=== PATIENT | female | born 1980 | race Caucasian/White ===

== ENCOUNTER 2016-12-23 06:00 | Inpatient (IN) | payer BC ==
[2016-12-23] MEDS ORDERED: TERBUTALINE SULFATE 1 MG/ML VIAL IV PRN (06:26)
[2016-12-23] MEDS ORDERED: EPSOM SALT 454 GM TP PRN (06:26)
[2016-12-23] MEDS ORDERED: LIDOCAINE 1% 30 ML SDV SC PRN (06:26)
[2016-12-23] MEDS ORDERED: OXYTOCIN/RINGERS LACTATE 1,000 ML IV PRN (06:26)
[2016-12-23] MEDS ORDERED: LR 1,000 ML IV PRN (06:26)
[2016-12-23] MEDS ORDERED: OLIVE OIL 118 ML BTL MISC PRN (06:26)
[2016-12-23] MEDS ORDERED: OXYTOCIN/LR *STANDARD DOSE PROTOCOL IV SCH (08:00)
[2016-12-23 08:07] LABS: % IMMATURE GRANULYOCYTES 1.2 % (0.0-1.1); ABSOLUTE IMMATURE GRANULOCYTES 0.13 10^3/uL (0.00-0.10); ADD DIFF? NO; ADD MORPH? NO; ADD SCAN? NO; ATYPICAL LYMPHOCYTE FLAG 30 (0-99); FRAGMENT RBC FLAG 0 (0-99); HEMATOCRIT 44.8 % (38.0-47.0); HEMOGLOBIN 15.1 g/dL (12.6-16.3); LEFT SHIFT FLG 0 (0-99); LIPEMIA HEMOLYSIS FLAG 80 (0-99); MEAN CELL HEMOGLOBIN 30.9 pg (27.9-34.1); MEAN CELL HEMOGLOBIN CONCENTR. 33.7 g/dL (32.4-36.7); MEAN CELL VOLUME 91.8 fL (81.5-99.8); MEAN PLATELET VOLUME 10.3 fL (8.7-11.7); PLATELET CLUMPS FLAG 0 (0-99); PLATELET COUNT 221 10^3/uL (150-400); RED BLOOD CELL COUNT 4.88 10^6/uL (4.18-5.33); RED CELL DISTRIBUTION WIDTH 13.2 % (11.5-15.2)
--- NOTE | 2016-12-23 09:25 | GHP ---
[f rep st] PREOP HISTORY AND PHYSICAL DATE OF ADMISSION: 12/23/2016 ADMISSION DIAGNOSES: 1. Intrauterine at 40 and 4/7 weeks' gestation. 2. Elective induction of labor. HISTORY OF PRESENT ILLNESS: The patient is a 36-year-old, 2, para 1-0-0-1, who is 40 and 4/ 7 weeks' gestation. She presents for elective induction of labor for being past her due date. The patient was 3 cm dilated in the office, 80% effaced, and -2 station. Her membranes were stripped on Tuesday, but she did not progress into labor so she is here for induction. MEDICAL HISTORY: Significant for migraines, anxiety. MEDICATIONS: vitamins. SURGICAL HISTORY: [place] teeth extraction. ALLERGIES: No known drug allergies. SOCIAL HISTORY: Patient is . 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 She lives with her and their other child. She denies tobacco, alcohol, or drug use. FAMILY MEDICAL HISTORY: Noncontributory. [employer]OC[employer]ATE [employer]OR HISTORY: Menarche age 13. Periods every 23-26 days, lasting 5-6 days. She is a 2, para 1-0-0-1. In 12/2015, she had a spontaneous vaginal delivery at 41 weeks of a 7 pounds, 12 ounc es female. She had an epidural with the labor. was uncomplicated. Current has been uncomplicated. The patient denies any history of any abnormal Pap smears or sexually transmit teri diseases. REVIEW OF SYSTEMS: A 10-point review of systems is negative including patient has good moveme nt and denies headache, changes in vision, nausea, or vomiting. There is no loss of fluid. No vagi nal bleeding. There is good movement. PHYSICAL EXAM: VITAL SIGNS: Stable. GENERAL APPEARANCE: She is alert and oriented x3. NECK: Th ere is no thyromegaly. The neck is supple. HEART: Rate is regular, regular. LUNGS: Clear to aus cultation bilaterally. ABDOMEN: Gravid, nondistended, nontender. EXTREMITIES: Reveal no calf ten derness or edema. PSYCH: Appropriate affect. PELVIC: 2-3 cm dilated, 80% effaced, and -2 station . Infant is in the cephalic presentation. She is having occasional contractions, and heart t racings is category 1. LABS: Blood type O negative. Antibody screen negative. Rubella immune. GBS negative. H BsAg negative. HIV negative. Her 50 g glucose was 81. Her Verifi screen was negative. She receiv ed RhoGAM in . ASSESSMENT AND PLAN: A 36-year-old, 2, para 1-0-0-1, who presents for elective induction of labor at 40 and 4/7 weeks' gestation. She has been started on Pitocin. She plans having an epidur al. /[id number]/MODL
[2016-12-23] MEDS ORDERED: fentaNYL 100 MCG/2 ML INJ ONE (10:54)
[2016-12-23] MEDS ORDERED: fentaNYL 2MCG/ML/BUP 0.1% RTU 100 ML BAG EP ONE (10:55)
[2016-12-23] MEDS ORDERED: BUPIVACAINE 0.25% 30 ML SDV ONE (10:55)
--- NOTE | 2016-12-23 12:40 | OBPROG ---
OBG Progress Note Assessment/Plan: Assessment: Plan: Subjective: patient is doing great. comfortable with epidural. arom - moderate amount of clear fluid. will recheck in several hours or sooner if indicated. status reassuring. Objective: 12/23/16 07:35 Patient ABO/Rh O NEGATIVE 12/23/16 07:35 - SVE Dilation (cm): 3 Effacement (%): 80 Station: -2 Current Contraction Pattern: Irregular FHR Pattern Variability: Moderate FHR Category: 1 Membranes: AROM Amniotic Fluid Color: Clear ICD10 Worksheet Patient Problems: Problems Problem Status Onset (spontaneous vaginal delivery) Acute
[2016-12-23] MEDS ORDERED: HYDROCORTISONE 0.5% CREAM TP PRN (13:56)
[2016-12-23] MEDS ORDERED: SIMETHICONE 80 MG TAB CHEW PO PRN (13:56)
--- NOTE | 2016-12-23 13:56 | OBPROC ---
- Labor and Delivery Onset of Contractions Date: 12/23/16 Onset of Contractions Time: 12:08 Onset of Contractions Type: Induced Rupture of Membranes Date: 12/23/16 Rupture of Membranes Time: 12:08 Rupture of Membranes Type: Artificial Amniotic Fluid Color: Clear Dilation Complete Time: 13:15 Delivery Type: Spontaneous Placenta Delivery Date: 12/23/16 Placenta Delivery Time: 13:38 Episiotomy/Laceration: 1st Degree Repair: 3-0 EBL: 300 Complications: None - [place] Info A Delivery Date: 12/23/16 Delivery Time: 13:33 Sex of Infant: Female Score (1 Min): 8 Score (5 Min): 9
[2016-12-23] MEDS: IBUPROFEN 600 MG TAB PO PRN ×2 (14:03→19:53)
[2016-12-23] MEDS ORDERED: PHENYLEPHRINE HCL 100 MCG/ML SYR IVP PRN (14:06)
[2016-12-23] MEDS ORDERED: METOCLOPRAMIDE 10 MG/2 ML VIAL IVP PRN (14:06)
[2016-12-23] MEDS ORDERED: fentaNYL 2MCG/ML/BUP 0.1% RTU 100 ML EP SCH (14:30)
[2016-12-23] MEDS ORDERED: LR 500 ML IV SCH (14:30)
[2016-12-23] MEDS: DOCUSATE SODIUM 100 MG CAP PO PRN (19:53)
[2016-12-23 20:00] VITALS: O2SAT 95
[2016-12-24] MEDS: IBUPROFEN 600 MG TAB PO PRN ×3 (01:41→18:38)
[2016-12-24] MEDS: HYDROCODONE/APAP 5/325 TAB PO PRN ×4 (05:37→19:29)
[2016-12-24] MEDS: DOCUSATE SODIUM 100 MG CAP PO PRN ×2 (09:24→19:31)
--- NOTE | 2016-12-24 11:30 | OBPROG ---
OBG Progress Note Assessment/Plan: Assessment: 36 y/o PPD #1 s/p doing well. Plan: support, continue Ibuprofen and Roy prn. Routine PPC, d/c home tomorrow. 12/24/16 11:29 Subjective: Pt is doing well this am. She had significant cramping and perineal pain last night improved with Ibuprofen and Roy. She has min lochia, and is voiding without difficulty. Breast feeding is gong well they are working on latching. Objective: 12/23/16 07:35 Patient ABO/Rh O NEGATIVE 12/23/16 07:35 Temp Pulse Resp BP Pulse Ox 36.1 C 76 18 114/68 95 12/24/16 08:00 12/24/16 08:00 12/24/16 08:00 12/24/16 08:00 12/24/16 08:00 Uterine Position/Fundal Height: Umbilicus -2 Uterine Tone: Firm - Physical Exam General Appearance: WD/WN, alert, no apparent distress Neck: non-tender, full range of motion, supple Respiratory: chest non-tender, lungs clear, normal breath sounds Cardiac/Chest: regular rate, rhythm Abdomen: normal bowel sounds Extremities: swelling (no), Brandon's sign (neg) ICD10 Worksheet Patient Problems: Problems Problem Status Onset (spontaneous vaginal delivery) Acute
[2016-12-25] MEDS: IBUPROFEN 600 MG TAB PO PRN ×2 (00:36→08:45)
[2016-12-25] MEDS: HYDROCODONE/APAP 5/325 TAB PO PRN ×4 (00:36→13:05)
[2016-12-25 09:29] VITALS: BP 106/69; PULSE 74; RESP 18; TEMP 97.9
--- NOTE | 2016-12-25 09:33 | SOAPPROG ---
SOAP Progress Note Assessment/Plan: Assessment: well pain well managed ff@u scant rubra lochia would like to go home today 0 bm x 48 hrs reassured/ passing gas voiding without difficulty Plan:discharge to home with instructions pain management, pnv continue, , ss infection, pericare, rest, fu 4 weeks and 6 weeks, depression , exercise, pelvic rest, contraception verbalized understanding of all of the above 12/25/16 09:30 Subjective: Doing well. denies difficulty. Some pain, coping well. Objective: Vital Signs Temp Pulse Resp BP Pulse Ox 36.2 C 66 16 107/75 95 12/24/16 20:00 12/24/16 20:00 12/24/16 20:00 12/24/16 20:00 12/24/16 08:00 Laboratory Results 12/23/16 07:35 12/24/16 12/25/16 12/26/16 05:59 05:59 05:59 Intake Total 2000 Output Total 700 Balance 1300 Physical Exam - Physical Exam General Appearance: WD/WN, alert, no apparent distress Abdomen: other (ff@u) Pelvic Exam: vaginal bleeding (scant rubra lochia) Skin: normal color, warm/dry Extremities: normal range of motion, Brandon's sign (negative bilaterally dtrs1+ bilaterally no clonus) Neuro/Psych: no motor/sensory deficits, alert, normal mood/affect, oriented x 3 ICD10 Worksheet Patient Problems: Problems Problem Status Onset (spontaneous vaginal delivery) Acute
== END 2016-12-25 13:30 | disposition home or self-care (01) | DRG 775 ==
LOC: FLD 06:02 → FOB 16:06
PROVIDERS: ADMIT Obstetrics & Gynecology; ATTEND Obstetrics & Gynecology
PROC: 0HQ9XZZ Repair Perineum Skin, External Approach (ICD-10-PCS; principal; 2016-12-23)
PROC: 3E033VJ Introduction of Other Hormone into Peripheral Vein, Percutaneous Approach (ICD-10-PCS; principal; 2016-12-23)
PROC: 10907ZC Drainage of Amniotic Fluid, Therapeutic from Products of Conception, Via Natural or Artificial Opening (ICD-10-PCS; principal; 2016-12-23)
PROC: 10E0XZZ Delivery of Products of Conception, External Approach (ICD-10-PCS; principal; 2016-12-23)
DX: O48.0 Post-term pregnancy (principal); Z3A.40 40 weeks gestation of pregnancy; Z37.0 Single live birth
CPT/HCPCS: J2590; J3010